=== PATIENT | female | born 1985 | race Caucasian/White ===

== ENCOUNTER → 2020-06-11 11:43 | Outpatient (BNVA) | payer MEDICAID, SELFPAY | PROVIDERS: Family Provider Family Medicine; PCP Family Medicine; Visit Provider Registered Nurse | DX: Z11.59 Encounter for screening for other viral diseases (principal) | CPT/HCPCS: 87635 ==

== ENCOUNTER 2020-06-29 17:58 | Emergency (ER) | payer MEDICAID, SELFPAY ==
[2020-06-29 18:03] VITALS: BP 102/70; PULSE 59; RESP 14; TEMP 36.8; O2SAT 98; BMI 33.5
--- NOTE | 2020-06-29 18:10 | ED_ITS ---
HPI - Chest Pain General: Chief Complaint: Chest Pain Stated Complaint: CHEST PAIN Time Seen by Provider: 06/29/20 18:09 History of Present Illness: HPI narrative: Patient presents today with complaints of right sided epigastric pain and central sternal chest pain. Patient appears well. Patient appears sedated most likely due to fentanyl and Zofran given in route by EMS. Patient reports not feeling well today then started having chest discomfort. Patient reports that pain is improved since there was receiving medication by EMS. Patient reports multiple medical problems also relating to mental health disorders. Radical history includes cholecystectomy, substance abuse, PTSD and depression, intervertebral disc disease. Associated symptoms: Reports abdominal pain Review of Systems General: Reports: 10 or more systems reviewed and unremarkable except in HPI and below GI: Reports: abdominal pain PFSH ED PFSH: Social History (Updated 06/11/20 @ 11:19 by Naomie López LPN) Smoking and tobacco status: current every day smoker Alcohol intake: never Adopted: No Caregiver/support person: No Lives independently: No Household members: children service: No Current occupational status: employed Sexually active: Yes Current gender identity: Female Physical Exam Const: COMMON NORMALS: no acute distress and patient oriented x3 GENERAL APPEARANCE: cooperative HENMT: COMMON NORMALS: normocephalic, TM's normal bilaterally and Normal external nose present HEAD & SCALP: normal to inspection and normocephalic NOSE: Normal external nose present TYMPANIC MEMBRANE: TM's normal bilaterally MOUTH: Normal oral and palatal mucosa present THROAT: posterior oropharynx normal Eye: GENERAL EYE: appearance normal, both eyes and all related structures Neck/C-Spine: COMMON NORMALS: full ROM Lymph: LYMPHATIC: no lymphadenopathy noted Chest: COMMONS NORMALS: normal inspection of the chest Resp: COMMON NORMALS: normal respiratory effort EFFORT & INSPECTION: Yes able to speak in complete sentences Cardio: COMMON NORMALS: regular rate and regular rhythm RATE: regular rate RHYTHM: regular rhythm GI: COMMON NORMALS: Soft to palpation AUSCULTATION: Yes normoactive bowel sounds PALPATION: Yes Soft to palpation and Yes Tenderness to palpation pres ent (GI) (general) : COMMON NORMALS: Yes no CVA tenderness BLADDER/KIDNEY EXAM: Yes no CVA tenderness Back/Pelvis: COMMON NORMALS: no CVA tenderness and thoracic and lumbar spine normal to inspection Extremity: COMMON NORMALS: normal to inspection Neuro: COMMON NORMALS: patient oriented x3 and moves all extremities Psych: COMMON NORMALS: mental status grossly normal and cooperative Skin: COMMON NORMALS: no rashes or lesions noted GENERAL SKIN EXAM: no rashes or lesions noted Course Vital Signs: Vital signs: Vital Signs Temperature 98.2 F 06/29/20 18:03 Pulse Rate 57 L 06/29/20 19:11 Respiratory Rate 15 06/29/20 19:11 Blood Pressure 106/76 06/29/20 19:11 Pulse Oximetry 97 06/29/20 19:11 MDM - Chest Pain MDM Narrative: Medical decision making narrative: Patient comes in for epigastric pain radiating up into her chest. On exam patient is alert oriented. Respirations are even lungs are clear to auscultation. Abdomen soft with some epigastric tenderness. Vital signs are normal. Differential diagnosis includes but not limited to gastritis, pancreatitis, ACS, GERD. Patient had improvement of pain from IV fluids, fentanyl, and Zofran. Laboratory values were unremarkable, except for low potassium at 3.0. Patient had been taking some prednisone recently for gout. Suspect prednisone is probably because some gastritis will put patient on some famotidine for the next 2 weeks to help with the gastritis. Will replace potassium with p.o. potassium. Recommended patient follow-up with primary care for further treatment. Patient reported understanding. Lab Data: Labs: Lab Results 06/29/20 06/29/20 06/29/20 Range/Units 18:43 18:43 18:43 WBC 12.0 H (4.0-10.0) 10^3/ uL RBC 3.93 L (4.1-5.3) 10^6/u L Hgb 12.8 (11.5-15.3) g/dL Hct 37.7 (37.0-47.0) % MCV 95.9 (81-99) fL MCH 32.6 (28.0-34.0) pg MCHC 34.0 (30.0-36.0) g/dL RDW 12.0 L (12.1-15.1) % Plt Count 284 (130-400) 10^3/c mm MPV 11.0 H (7.4-10.4) fL Neut % (Auto) 60.5 % Lymph % (Auto) 32.7 % [place] % (Auto) 4.6 % Eos % (Auto) 1.4 % Baso % (Auto) 0.5 % Neut # (Auto) 7.24 (1.8-7.7) 10^3/u L Lymph # (Auto) 3.9 (0.8-4.8) 10^3/u L [place] # (Auto) 0.6 (0.2-0.9) 10^3/u L Eos # (Auto) 0.2 (0.0-0.8) 10^3/u L Baso # (Auto) 0.1 (0.0-0.1) 10^3/u L Nucleated RBC % (a uto) 0 % Nucleated RBCs # 0.0 /100WBC D-Dimer 0.42 (0-0.59) ug/mIFE U Sodium 138 (136-145) mmol/L Potassium 3.0 L (3.5-5.1) mmol/L Chloride 105 (98-107) mmol/L Carbon Dioxide 20 L (22-29) mmol/L Anion Gap 16.0 (5-19) BUN 11 (6-20) mg/dL Creatinine 0.6 (0.5-0.9) mg/dL GFR Calculation 113.8 (90-130) mL/min Glucose 101 (65-115) mg/dL Calculated Osmolal ity 286 (285-295) mOsm/k g Calcium 9.1 (8.5-10.5) mg/dL Total Bilirubin 0.2 (0.15-1.2) mg/dL AST 16 (0-32) U/L ALT 18 (0-33) U/L Alkaline Phosphata se 105 (35-105) IU/L Troponin T Baselin e (0-10) ng/L Total Protein 6.6 (6.6-8.7) g/dL Albumin 4.0 (3.5-5.2) g/dL Globulin 2.6 (1.3-4.6) g/dL HCG, Qual (Negative) 06/29/20 06/29/20 Range/Units 18:43 18:43 WBC (4.0-10.0) 10^3/ uL RBC (4.1-5.3) 10^6/u L Hgb (11.5-15.3) g/dL Hct (37.0-47.0) % MCV (81-99) fL MCH (28.0-34.0) pg MCHC (30.0-36.0) g/dL RDW (12.1-15.1) % Plt Count (130-400) 10^3/c mm MPV (7.4-10.4) fL Neut % (Auto) % Lymph % (Auto) % [place] % (Auto) % Eos % (Auto) % Baso % (Auto) % Neut # (Auto) (1.8-7.7) 10^3/u L Lymph # (Auto) (0.8-4.8) 10^3/u L [place] # (Auto) (0.2-0.9) 10^3/u L Eos # (Auto) (0.0-0.8) 10^3/u L Baso # (Auto) (0.0-0.1) 10^3/u L Nucleated RBC % (a uto) % Nucleated RBCs # /100WBC D-Dimer (0-0.59) ug/mIFE U Sodium (136-145) mmol/L Potassium (3.5-5.1) mmol/L Chloride (98-107) mmol/L Carbon Dioxide (22-29) mmol/L Anion Gap (5-19) BUN (6-20) mg/dL Creatinine (0.5-0.9) mg/dL GFR Calculation (90-130) mL/min Glucose (65-115) mg/dL Calculated Osmolal ity (285-295) mOsm/k g Calcium (8.5-10.5) mg/dL Total Bilirubin (0.15-1.2) mg/dL AST (0-32) U/L ALT (0-33) U/L Alkaline Phosphata se (35-105) IU/L Troponin T Baselin e 6 (0-10) ng/L Total Protein (6.6-8.7) g/dL Albumin (3.5-5.2) g/dL Globulin (1.3-4.6) g/dL HCG, Qual Negative (Negative) EKG Data^: EKG 1: Attestation: I personally reviewed and interpreted this EKG as follows: (1812, 58 bpm, irregular rate, no ectopy, no ST elevation) Discharge Plan Discharge Patient Disposition: Home Clinical Impression: Atypical chest pain, Hypokalemia Gastritis Qualifiers: Gastritis type: other gastritis Chronicity: acute Gastritis bleeding: without bleeding Qualified Code(s): K29.00 - Acute gastritis without bleeding Condition: Stable Prescriptions: New potassium chloride 10 mEq tablet extended release 10 meq PO DAILY Qty: 7 RF: 0 famotidine 20 mg tablet 20 mg PO BID Qty: 28 RF: 0 Discharge Orders: Discharge Order (Routine); Ordered 06/29/20 Ordered By: Jesse Velazquez Referrals: Dulce Martinez MD [Primary Care Provider] - Discharge Diet: Usual diet Discharge Activity: Increase activity as tolerated Patient Instructions: Hypokalemia (ED) Activity Restrictions/Additional Instructions: Activity as tolerated. Healthy diet and exercise. Follow-up with primary care for further treatment and evaluation. Return to emergency department for new concerns. Coding Level of Care Code ED Equipment Service Engineer for Dago Fwd Exam Comprehensive
[2020-06-29 18:11] VITALS: BP 102/70; PULSE 59; RESP 14; O2SAT 97
--- NOTE | 2020-06-29 18:11 | ECG_ITS ---
[facility] Test Date: 2020-06-29 Pat Name: Lily Arriaga Department: Room: Gender: Female Accounting Intern: : 1985 Requested By: Jesse Hardy Order Number: [id number] Julisa MD: Randi Salgado M.D. Measurements Intervals [place] Rate: 58 P: UT: -1 QRS: 35 QRSD: 91 T: 31 QT: 448 QTc: 442 Interpretive Statements SINUS RHYTHM WITH ECTOPIC ATRIAL BEATS LOW QRS VOLTAGE IN PRECORDIAL LEADS [QRS DEFLECTION < 1.0 mV IN CHEST LEADS] No previous ECG available for comparison Electronically Signed On 06-29-2020 23:28:51 CDT by Randi Salgado M.D. [email or web address]
--- NOTE | 2020-06-29 18:11 | XRR_ITS ---
PROCEDURE INFORMATION: Exam: XR Chest, 1 View Exam date and time: 06/29/2020 6:12 PM Age: 35 years old Clinical indication: Type not specified; Patient HX: PT states mid chest pain began today, PT states she is an ex smoker. PT states surg HX of gb and partial hystorectomy; Additional info: Cp TECHNIQUE: Imaging protocol: XR of the chest Views: 1 view. COMPARISON: [place] Chest 1 [place] [id number] 09/21/2017 10:50 AM FINDINGS: Lungs: Unremarkable. No consolidation. Pleural space: Unremarkable. No pleural effusion. No pneumothorax. Heart/Mediastinum: Unremarkable. No cardiomegaly. Bones/joints: Unremarkable. Other findings: Heavy body habitus. XR/XR chest 1V portable [id number] IMPRESSION: Nonacute.
[2020-06-29 18:41] VITALS: BP 100/68; PULSE 58; RESP 19; O2SAT 99
[2020-06-29 19:09] LABS: Basophils # 0.1 10^3/uL (0.0-0.1); Basophils % 0.5 %; Eosinophils # 0.2 10^3/uL (0.0-0.8); Eosinophils % 1.4 %; Hematocrit 37.7 % (37.0-47.0); Hemoglobin 12.8 g/dL (11.5-15.3); Lymphocytes # 3.9 10^3/uL (0.8-4.8); Lymphocytes % 32.7 %; Mean Corpuscular Hemoglobin 32.6 pg (28.0-34.0); Mean Corpuscular Volume 95.9 fL (81-99); Monocytes # 0.6 10^3/uL (0.2-0.9); Monocytes % 4.6 %; Neutrophils # 7.24 10^3/uL (1.8-7.7); Neutrophils % 60.5 %; Nucleated Red Blood Cells % 0 %; Platelet Count 284 10^3/cmm (130-400); Red Blood Count 3.93 10^6/uL (4.1-5.3)
[2020-06-29 19:11] VITALS: BP 106/76; PULSE 57; RESP 15; O2SAT 97
[2020-06-29 19:21] LABS: HCG, Serum Qual Negative (Negative)
[2020-06-29 19:32] LABS: Alanine Aminotransferase 18 U/L (0-33); Alkaline Phosphatase 105 IU/L (35-105); Aspartate Amino Transferase 16 U/L (0-32); Blood Urea Nitrogen 11 mg/dL (6-20); Calcium 9.1 mg/dL (8.5-10.5); Carbon Dioxide 20 mmol/L (22-29); Chloride 105 mmol/L (98-107); Globulin 2.6 g/dL (1.3-4.6); Glomerular Filtration Rate 113.8 mL/min (90-130); Glucose 101 mg/dL (65-115); Osmolality Calculated 286 mOsm/kg (285-295); Sodium 138 mmol/L (136-145); Total Bilirubin 0.2 mg/dL (0.15-1.2); Total Protein 6.6 g/dL (6.6-8.7)
[2020-06-29 19:33] LABS: Troponin(5th) Baseline 6 ng/L (0-10)
[2020-06-29 19:34] LABS: D Dimer 0.42 ug/mIFEU (0-0.59)
[2020-06-29 19:59] VITALS: BP 129/75; PULSE 95; O2SAT 96
[2020-06-29] MEDS: potassium chloride ER 10 mEq Tablet 20 MEQ PO (20:09)
[2020-06-29] MEDS: famotidine 20 mg/2 mL INJ 40 MG IVP (20:09)
[2020-06-29 20:18] VITALS: RESP 18
== END 2020-06-29 20:18 | disposition home or self-care (01) ==
PROVIDERS: Emergency Provider Nurse Practitioner Family; Family Provider Family Medicine; PCP Family Medicine
DX: R07.89 Other chest pain (principal); K29.00 Acute gastritis without bleeding; E87.6 Hypokalemia; F17.210 Nicotine dependence, cigarettes, uncomplicated
CPT/HCPCS: 12345; 36415; 71045; 80053; 84484; 84703; 85025; 85378; 93005; 96374; 96375; 99283; 99284; J3490

== ENCOUNTER 2021-07-12 10:13 | Outpatient (CLI) | payer BC, MEDICAID, SELFPAY ==
--- NOTE | 2021-07-12 11:00 | MR_ITS ---
WS: [id number] MRI BRAIN WITH HIGH-RESOLUTION IMAGING THROUGH THE INTERNAL AUDITORY CANALS WITHOUT AND WITH CONTRAST HISTORY: [id number] HEAR LOSS, UNI, R EAR, pressure and hearing loss. COMPARISON: CT head 09/21/2017 TECHNIQUE: Multiplanar, multisequence imaging is performed through the brain. Additional 3 mm imaging performed in multiple planes through the internal auditory canal. Postcontrast imaging with 17 ml's of MultiHance. No acute intracranial hemorrhage, midline shift, edema or mass effect. No volume loss or atrophy. No inferior displacement of cerebellar tonsils. Ventricles and extra-axial spaces are normal. No inferior displacement of cerebellar tonsils. Clivus and pituitary gland are normal. Internal and external auditory canals: Unremarkable. Cranial nerves VII and VIII complexes: The RIGHT 7th and 8th cranial nerve complex is not as well see n LEFT but there is no mass effect or abnormal enhancement. The orientation is slightly more vertical than horizontal of the RIGHT 7th and 8th cranial nerve complexes. Also RIGHT 7th and 8th cranial ner ves are slightly larger than the LEFT. Cerebellopontine angles: Normal. Paranasal sinuses: Normal. Mastoid air cells: Normal. Calvarium and scalp: Normal. Visualized chilkat of [place] and dural venous sinuses demonstrate no abnormality. MR/MR iac's wo/w con* [id number] IMPRESSION: 1. The RIGHT 7th and 8th cranial nerve complex is slightly larger than the LEF T but there is no mass or abnormal enhancement. This is probably normal variati on. 2. No infarct or mass or prior hemorrhage.
== END 2021-07-12 10:14 | disposition home or self-care (01) ==
PROVIDERS: PCP Family Medicine; Visit Provider Otolaryngology
DX: H90.41 Sensorineural hearing loss, unilateral, right ear, with unrestricted hearing on the contralateral side (principal); H92.01 Otalgia, right ear
CPT/HCPCS: 70553; A9577

== ENCOUNTER → 2021-09-26 13:29 | Outpatient (BNVA) | payer BC, MEDICAID, SELFPAY | PROVIDERS: PCP Family Medicine; Visit Provider Registered Nurse | DX: Z20.822 Contact with and (suspected) exposure to COVID-19 (principal); Z11.52 Encounter for screening for COVID-19 | CPT/HCPCS: 87635 ==

== ENCOUNTER → 2021-10-30 13:38 | Outpatient (BNVA) | payer BC, MEDICAID, SELFPAY | PROVIDERS: PCP Family Medicine; Referring Provider Specialist; Visit Provider Specialist | DX: G43.711 Chronic migraine without aura, intractable, with status migrainosus (principal); G40.309 Generalized idiopathic epilepsy and epileptic syndromes, not intractable, without status epilepticus; Z86.73 Personal history of transient ischemic attack (TIA), and cerebral infarction without residual deficits; Z82.49 Family history of ischemic heart disease and other diseases of the circulatory system | CPT/HCPCS: 99205 ==

== ENCOUNTER → 2021-12-16 07:48 | Outpatient (BNVA) | payer BC, MEDICAID, SELFPAY | PROVIDERS: PCP Family Medicine; Referring Provider Family Medicine; Visit Provider Specialist | DX: G40.309 Generalized idiopathic epilepsy and epileptic syndromes, not intractable, without status epilepticus (principal) | CPT/HCPCS: 99214 ==

== ENCOUNTER → 2022-01-21 14:44 | Outpatient (BNVA) | payer BC, MEDICAID, SELFPAY | PROVIDERS: PCP Family Medicine; Referring Provider Nurse Practitioner Family; Visit Provider Podiatrist Foot & Ankle Surgery | DX: S92.251A Displaced fracture of navicular [scaphoid] of right foot, initial encounter for closed fracture (principal); W10.9XXA Fall (on) (from) unspecified stairs and steps, initial encounter | CPT/HCPCS: 73630; 99204 ==

== ENCOUNTER 2022-01-21 15:58 | Outpatient (CLI) | payer BC, MEDICAID, SELFPAY | END 2022-01-21 15:59 | disposition home or self-care (01) | LOC: SPT 15:59 | PROVIDERS: PCP Family Medicine; Visit Provider Podiatrist Foot & Ankle Surgery | DX: Z46.89 Encounter for fitting and adjustment of other specified devices (principal); S92.251D Displaced fracture of navicular [scaphoid] of right foot, subsequent encounter for fracture with routine healing; X58.XXXD Exposure to other specified factors, subsequent encounter | CPT/HCPCS: 97760; L1902 ==

== ENCOUNTER → 2022-03-04 13:16 | Outpatient (BNVA) | payer BC, MEDICAID, SELFPAY | PROVIDERS: PCP Family Medicine; Visit Provider Podiatrist Foot & Ankle Surgery | DX: S92.251D Displaced fracture of navicular [scaphoid] of right foot, subsequent encounter for fracture with routine healing (principal); W10.9XXD Fall (on) (from) unspecified stairs and steps, subsequent encounter | CPT/HCPCS: 99213 ==

== ENCOUNTER 2022-03-13 14:46 | Outpatient (CLI) | payer BC, MEDICAID, SELFPAY ==
--- NOTE | 2022-03-13 14:54 | MR_ITS ---
WS: [id number] MRI HEAD WITHOUT CONTRAST TECHNIQUE: Sagittal T1, T2 axial, T2 axial FLAIR, axial and coronal T1 images, axial susceptibility w eighted imaging, axial diffusion weighted images, and coronal T2 images were obtained. CLINICAL INFORMATION: G43.711 - Chronic migraine without aura, intractable, wit... COMPARISON: MRI July 12, 2021 FINDINGS: No evidence of restricted diffusion to suggest acute ischemia. Ventricular system and basal cisterns are patent. Normal stovall-white differentiation. No suspicious intracranial signal abnormalities. 2 or 3 tiny punctate foci of T2 hyperintensity in the frontal subcortical white matter can be seen with mi graine headaches. Otherwise of doubtful clinical significance. Normal posterior fossa. Normal vascular flow voids at the skull base. No extra-axial fluid collection s. No evidence of mass or mass effect. Mucosal thickening in the RIGHT frontal sinus with partial opa cification and frontal ethmoidal recess. Normal posterior nasopharynx. Normal parapharyngeal fat. Mastoid air cells are well aerated. Normal visualized orbits. Normal optic chiasm and pituitary infun dibulum. Temporal lobes and hippocampal formations are normal in appearance. No hemosiderin on the culp sceptibly weighted images. MR/MR head wo con* [id number] IMPRESSION: 1. No evidence of restricted diffusion to suggest acute ischemia. 2. No suspicious intracranial signal abnormalities. Normal stovall-white differen tiation. 3. 2 or 3 tiny punctate foci of T2 hyperintensity in the frontal subcortical w pranav matter can be seen with migraine headaches. 4. No significant parenchymal volume loss. Temporal lobes and hippocampal form ations are normal in appearance. 5. Opacification of the RIGHT frontal sinus and frontal ethmoidal recess. Aubrey mmend correlation for RIGHT frontal sinus pain. 6. No hemosiderin on susceptibly weighted images. 7. No other significant changes compared to previous.
== END 2022-03-13 14:47 | disposition home or self-care (01) ==
PROVIDERS: PCP Family Medicine; Visit Provider Specialist
DX: G43.711 Chronic migraine without aura, intractable, with status migrainosus (principal); G40.309 Generalized idiopathic epilepsy and epileptic syndromes, not intractable, without status epilepticus; G45.9 Transient cerebral ischemic attack, unspecified
CPT/HCPCS: 70551

== ENCOUNTER 2022-04-15 10:57 | Outpatient (CLI) | payer BC, MEDICAID, SELFPAY ==
--- NOTE | 2022-04-15 11:05 | MR_ITS ---
WS: [id number] MRI BRAIN WITH HIGH-RESOLUTION IMAGING THROUGH THE INTERNAL AUDITORY CANALS WITHOUT AND WITH CONTRAST HISTORY: OTALGIA,R EAR COMPARISON: 07/12/2021 and 03/13/2022 TECHNIQUE: Multiplanar, multisequence imaging is performed through the brain. Additional 3 mm imaging performed in multiple planes through the internal auditory canal. Postcontrast imaging with 15 ml's of MultiHance. No acute intracranial hemorrhage, midline shift, edema or mass effect. No prior infarct or microvascular ischemic disease. Subcortical bilateral frontal lobe disease. Reide ntified. Most typical for migraines. No progression of white matter disease. Ventricles and extra-axial spaces are normal. No inferior displacement of cerebellar tonsils. Clivus and pituitary gland are normal. Internal and external auditory canals: Unremarkable. Cranial nerves VII and VIII complexes: Unremarkable. No enhancement or mass. Cerebellopontine angles: Normal. Paranasal sinuses: Mild mucoperiosteal thickening involving the RIGHT frontal and frontal ethmoid rec ess. Improved aeration since the prior study. No air-fluid levels within the sinuses. Mastoid air cells: Normal. Calvarium and scalp: Normal. Visualized sle[place] of [place] and dural venous sinuses demonstrate no abnormality. MR/MR iac's wo/w con* [id number] IMPRESSION: 1. Normal internal auditory canals. No signal abnormality or abnormal enhancem ent. 2. Mild improvement of the RIGHT frontal and frontal ethmoid sinus disease. 3. Minimal subcortical white matter disease in the frontal lobes is stable. Ty pical distribution for migraines.
[2022-04-15] MEDS: gadobenate dimeglumine 20 mL vial IV (12:22)
== END 2022-04-15 10:58 | disposition home or self-care (01) ==
LOC: RAD 10:58
PROVIDERS: PCP Nurse Practitioner Family; Visit Provider Otolaryngology
DX: R56.9 Unspecified convulsions (principal); G43.711 Chronic migraine without aura, intractable, with status migrainosus; F33.9 Major depressive disorder, recurrent, unspecified; H92.01 Otalgia, right ear
CPT/HCPCS: 70553; 99214

== ENCOUNTER 2022-04-29 10:44 | Outpatient (CLI) | payer BC, MEDICAID, SELFPAY ==
--- NOTE | 2022-04-29 10:53 | CT_ITS ---
WS: [id number] Exam: CT neck w con* [id number] Date/Time of Exam: 04/29/2022 11:08 AM Reason For Exam: OTALGIA, R EAR/ARTHRALGIA OF R TEMPOROMANDIBULAR JOINT DLP: 216.[address] scans at [facility] use at least one of these dose optimization techniques: automated e xposure control; mA and/or kV adjustment per patient size (includes targeted exams where dose is matc hed to clinical indication); or iterative reconstruction. Comparison 07/05/2019. No sign of neck mass or significant cervical lymphadenopathy. The airway is patent. No lesions are no cecilia in the region of the tongue base. The parotid glands and submandibular glands are symmetrical herrera e to side. Vascular structures of the neck are unremarkable. Unremarkable thyroid tissue. Groundglass densities identified in the visualized upper lung zones. Degenerative changes of the cervical spine. Stable appearing small lytic lesion in the C5 vertebral body. Unremarkable skull base. Marked rightw kal nasal septal deviation. CT/CT neck w con* [id number] IMPRESSION: 1. No sign of neck mass or significant cervical lymphadenopathy. 2. Additional minor findings as detailed above.
[2022-04-29] MEDS: iohexol 350 mg/mL 100 mL Btl IV (11:32)
== END 2022-04-29 10:45 | disposition home or self-care (01) ==
LOC: RAD 10:44
PROVIDERS: PCP Nurse Practitioner Family; Visit Provider Specialist
DX: H90.41 Sensorineural hearing loss, unilateral, right ear, with unrestricted hearing on the contralateral side (principal); H92.01 Otalgia, right ear; M26.621 Arthralgia of right temporomandibular joint
CPT/HCPCS: 70491

== ENCOUNTER → 2022-05-01 10:03 | Outpatient (BNVA) | payer BC, MEDICAID, SELFPAY | PROVIDERS: PCP Nurse Practitioner Family; Referring Provider Specialist; Visit Provider Specialist | DX: G40.309 Generalized idiopathic epilepsy and epileptic syndromes, not intractable, without status epilepticus (principal) | CPT/HCPCS: 95812; 95816 ==

== ENCOUNTER 2022-05-13 11:05 | Emergency (ER) | payer BC, MEDICAID, SELFPAY ==
--- NOTE | 2022-05-13 11:13 | W.ED.GENADLT ---
HPI - General Adult General: Chief complaint: Seizure Stated complaint: seizure Time Seen by Provider: 05/13/22 11:06 History of Present Illness: Patient is a 37-year-old female with a history of seizures currently on valproic acid presenting to the emergency room after she forgot to take her medicine today with concerns of seizure outbreak. Patient most recently on 04/29/2022 was diagnosed with C5 lytic lesion and is currently undergoing evaluation for that lesion. Patient was also diagnosed with osteoarthritis of the bone was recently started on Flexeril 10 mg. Patient has been taking her Flexeril for back pain. Earlier today, patient got to take her to valproic acid and had a witnessed episode of breakthrough seizure. Patient was postictal when EMS arrived. On arrival to the emergency room, patient is AAO x3, patient complains of neck pain, left shoulder pain. Patient reports brief episodes of dyspnea prior to the episode of seizure. Patient has no complaints of persistent dyspnea chest pain, cough, runny nose or sore throat. Patient also complains of right-sided ear pain. Patient denies any focal weakness in the arms or legs, fever/chills, cough, runny nose, sore throat, chest pain, abdominal component nausea/vomiting, diarrhea melena hematochezia. No complaints. Onset: 9am Duration:once Location:work Severity:moderate Associated symptoms: Reports headache(s); Deny chest pain, dyspnea, nausea, rash, palpitations or vomiting Review of Systems Const: Denies: fever(s) or chills Eyes: Denies: change in vision ENMT: Reports: other (+R ear pain); Denies: mouth pain Card: Denies: chest pain or palpitations Resp: Denies: dyspnea or non-productive cough GI: Denies: abdominal pain, nausea, vomiting or diarrhea : Denies: dysuria Musc: Reports: neck pain and extremity pain (+L shoulder pain) Skin/Breast: Denies: rash or new lesions Neuro: Reports: headache(s); Denies: weakness in extremities Psych: Reports: other (Normal mood) Trip/Lymph: Denies: easy bruising PFS ED PFSH: Medical History Migraine Seizure Social History Smoking and tobacco status: never smoked Alcohol intake: never Adopted: No Caregiver/support person: No Lives independently: No Household members: children service: No Current occupational status: employed Sexually active: Yes Current gender identity: Female Physical Exam Const: COMMON NORMALS: alert HENMT: COMMON NORMALS: atraumatic HEAD & SCALP: atraumatic MOUTH: moist mucous membranes not abnormal Eye: COMMON NORMALS: EOMs intact bilaterally and conjunctivae normal CONJUNCTIVA: Yes conjunctivae normal Neck/C-Spine: COMMON NORMALS: full ROM and supple OTHER: +mild midline C4 tenderness to palpation Resp: COMMON NORMALS: normal respiratory effort and clear to auscultation bilaterally AUSCULTATION: clear to auscultation bilaterally Cardio: COMMON NORMALS: regular rate RATE: regular rate GI: COMMON NORMALS: Soft to palpation and non-tender PALPATION: Yes Soft to palpation Extremity: COMMON NORMALS: full ROM NARRATIVE EXTREMITY EXAM: +ROM of the L shoulder intact +Pain with ROM of the l shoulder Neurovascular exam intact in the distal extremities Neuro: SENSORIUM/ORIENTATION: Yes alert MOTOR EXAM: No Abnormal motor strength present and Other motor observations present (no focal motor deficits) OTHER: Mental status? Awake, alert, and oriented to self, year, month, location, and situation.? Following simple axial and appendicular commands.? Has appropriate fund of knowledge, comprehension, and insight.? Able to recall and understands pertinent aspects of medical history and current treatment status.? ? Language? Speech is fluent without word-finding difficulties.? Intact naming, expression, receptionist, and repetition.? ? Cranial nerves? 2,3,4,6: PERRL, EOMI with no nystagmus. 5: Intact sensation to light touch, symmetric? 7: Smile symmetrical, no facial droop.? 8: Hearing grossly intact.? 9,10: Normal palate movement.? 11: Normal strength in trapezius bilaterally 12: Tongue protrudes midline.? ? Motor examination? Normal bulk & tone. Strength as follows (R/L): Delts (5/5), Biceps (5/5), Triceps (5/5), Wrist ext (5/5), hip flexors (5/5), plantarflexors (5/5), dorsiflexors (5/5). ? Sensation? Light Touch: Grossly intact and equal in upper and lower extremities bilaterally? Romberg: Negative.? Distal joint position sense intact ? Coordination? Uvsxbd-xr-tdti-finger movements intact without dysmetria or past-pointing.? Rapid fingertaps: preserved amplitude without decriment.? No tremor, myoclonus or truncal ataxia.? ? Gait/stance? Steady, normal narrow base gait with appropriate arm swing and turning.? Tandem gait without hesitation or loss of balance. Psych: COMMON NORMALS: speech normal SPEECH: Yes normal speech MOOD & AFFECT: Yes euthymic mood Course Vital Signs: Vital signs: Vital Signs Temperature 98.3 F 05/13/22 11:14 Pulse Rate 78 05/13/22 11:14 Respiratory Rate 18 05/13/22 11:14 Blood Pressure 102/69 05/13/22 11:14 Pulse Oximetry 97 05/13/22 11:14 Oxygen Delivery Me thod 05/13/22 11:14 MDM - General Adult Medical Decision Making 37-year-old female with history of seizure on valproic acid presenting to the emergency room with breakthrough episode of seizure while at work today. On exam, patient is hemodynamically stable. Patient has mild C5 midline tenderness to palpation. There is mild left shoulder pain to range of motion. Rest of exam is unremarkable. Neuro exam is intact. Patient is AAOx3. Given presentation today, I suspect the patient's breakthrough seizure is likely due to medication noncompliance in the setting of decreased seizure threshold from Flexeril. Instructed patient to stop taking Flexeril at home. We will send valproic acid level today. Workup showed no focal finding. Patient valproic acid is below therapeutic level. I discussed case with Dr. Escobar who thinks that patient may be on valproic acid for chronic migraine. Dr. Escobar recommend starting patient on Keppra [address] imaging studies were negative for any acute findings. S/p Kcl 40mEq in the Ed. I have given patient follow up with our case fitter to be seen by our outpatient by Dr. Escobar. Patient aware of a call from our case fitter to schedule for appointment(s) and verbalizes understanding of the importance of following up. Rx keppra 500mg BID for seizures Disposition: Discharge. Patient counseled regarding diagnostic impression, treatment plan. Patient given ED strict return precautions to return for continuation, worsening, or development of new symptoms. Instructed to f/u w/ Dr. Escobar regarding symptoms today. Patient verbalized understanding. Lab Data : 05/13/22 11:10 05/13/22 11:10 Radiology Impressions Cervical Spine CT 05/13/22 11:18 IMPRESSION: 1. No acute cervical spine fracture. 2. Degenerative changes and osteophytosis as described above. Most significant changes at C4-5 and C5-6. Chest X-Ray 05/13/22 11:18 IMPRESSION: Unremarkable chest radiograph. Head CT 05/13/22 11:18 IMPRESSION: Negative head CT. Shoulder X-Ray 05/13/22 11:18 IMPRESSION: Negative left shoulder. Laboratory Results WBC 9.5 10^3/uL (4.0-10.0) 05/13/22 11:10 RBC 4.66 10^6/uL (4.1-5.3) 05/13/22 11:10 Hgb 15.1 g/dL (11.5-15.3) 05/13/22 11:10 Hct 44.3 % (37.0-47.0) 05/13/22 11:10 MCV 95.1 fl (81-99) 05/13/22 11:10 MCH 32.4 pg (28.0-34.0) 05/13/22 11:10 MCHC 34.1 g/dL (30.0-36.0) 05/13/22 11:10 RDW 11.8 % (12.1-15.1) L 05/13/22 11:10 Plt Count 257 10^3/cmm (130-400) 05/13/22 11:10 MPV 11.2 fL (7.4-10.4) H 05/13/22 11:10 Neut % (Auto) 57.6 % 05/13/22 11:10 Lymph % (Auto) 35.8 % 05/13/22 11:10 [place] % (Auto) 4.8 % 05/13/22 11:10 Eos % (Auto) 0.7 % 05/13/22 11:10 Baso % (Auto) 0.6 % 05/13/22 11:10 Neut # (Auto) 5.45 10^3/uL (1.8-7.7) 05/13/22 11:10 Lymph # (Auto) 3.4 10^3/uL (0.8-4.8) 05/13/22 11:10 [place] # (Auto) 0.5 10^3/uL (0.2-0.9) 05/13/22 11:10 Eos # (Auto) 0.1 10^3/uL (0.0-0.8) 05/13/22 11:10 Baso # (Auto) 0.1 10^3/uL (0.0-0.1) 05/13/22 11:10 Nucleated RBC % (auto) 0 % 05/13/22 11:10 Nucleated RBCs # 0.0 /100WBC 05/13/22 11:10 Sodium 138 mmol/L (136-145) 05/13/22 11:10 Potassium 3.1 mmol/L (3.5-5.1) L 05/13/22 11:10 Chloride 101 mmol/L (98-107) 05/13/22 11:10 Carbon Dioxide 23 mmol/L (22-29) 05/13/22 11:10 Anion Gap 17.1 (5-19) 05/13/22 11:10 BUN 15 mg/dL (6-20) 05/13/22 11:10 Creatinine 0.8 mg/dL (0.5-0.9) 05/13/22 11:10 GFR Calculation 80.7 mL/min (90-130) L 05/13/22 11:10 Glucose 73 mg/dL (65-115) 05/13/22 11:10 Calculated Osmolality 285 mOsm/kg (285-295) 05/13/22 11:10 Calcium 9.9 mg/dL (8.5-10.5) 05/13/22 11:10 Magnesium 2.1 mg/dL (1.7-2.3) 05/13/22 11:10 Total Bilirubin 0.3 mg/dL (0.15-1.2) 05/13/22 11:10 AST 13 U/L (0-32) 05/13/22 11:10 ALT 13 U/L (0-33) 05/13/22 11:10 Alkaline Phosphatase 81 U/L (35-105) 05/13/22 11:10 Total Protein 7.6 g/dL (6.6-8.7) 05/13/22 11:10 Albumin 4.6 g/dL (3.5-5.2) 05/13/22 11:10 Globulin 3.0 g/dL (1.3-4.6) 05/13/22 11:10 Lipase 52 U/L (13-60) 05/13/22 11:10 Urine Color Yellow (Yellow) 05/13/22 12:53 Urine Appearance Clear (CLEAR) 05/13/22 12:53 Urine pH 5 (5-7) 05/13/22 12:53 Ur Specific [place] 1.005 (1.005-1.030) 05/13/22 12:53 Urine Protein Neg (Negative) 05/13/22 12:53 Urine Glucose (UA) Norm (Normal) 05/13/22 12:53 Urine Ketones Negative (Negative) 05/13/22 12:53 Urine Blood Neg (Negative) 05/13/22 12:53 Urine Nitrate Negative (Negative) 05/13/22 12:53 Urine Bilirubin Neg (Negative) 05/13/22 12:53 Urine Urobilinogen Norm mg/dL (Negative) 05/13/22 12:53 Ur Leukocyte Esterase Negative (Negative) 05/13/22 12:53 Valproic Acid 2.8 ug/mL (50-100) L 05/13/22 11:10 Imaging Data Other Imaging: Radiologist's impression: [address] [address] XRay Report Signed Patient: Lily Arriaga Unit #: [id number] : 1985 Age/Sex: 37 / F ADM Date: 05/13/22 Loc: ER Room/Bed: Attending Dr: Ordering Provider/Ordering MD: Swati Mjeia MD Date of Service: 05/13/22 Procedure(s): XR shoulder LT min 2V* [id number] Accession Number(s): [id number] Report Number: [id number] WS: [email or web address] Exam: XR shoulder LT min 2V* [id number] Date/Time of Exam: 05/13/2022 11:29 AM Reason For Exam: shoulder pain The projections of the shoulder reveal no fractures, anomalies, soft tissue swelling, or calcifications.? There is normal bony alignment.? No irregularity of the bony architecture is noted. ? XR/XR shoulder LT min 2V* [id number] IMPRESSION: Negative left shoulder. ? ? Dictated By: Vik Petit DO Signed By: Vik Petit DO Signed Date/Time: 05/13/22 1144 DD/ [address] [place] [address] CT Scan Report Signed Patient: Lily Arriaga Unit #: [id number] : 1985 Age/Sex: 37 / F ADM Date: 05/13/22 Loc: ER Room/Bed: Attending Dr: Ordering Provider/Ordering MD: Swati Mejia MD Date of Service: 05/13/22 Procedure(s): CT head wo con* [id number] Accession Number(s): [id number] Report Number: [id number] WS: [email or web address] CT HEAD NONCONTRAST HISTORY: fall TECHNIQUE: Contiguous axial imaging performed through the brain in 2.5 mm imaging. Bone and soft tissue windows. Sagittal and coronal reformats reviewed.? All CT scans at [facility] use at least one of these dose optimization techniques: automated exposure control; mA and/or kV adjustment per patient size (includes targeted exams where dose is matched to clinical indication); or iterative reconstruction. DLP: 1095.28 mGy.cm COMPARISON: 09/21/2017 No acute intracranial hemorrhage, midline shift or mass effect. No atrophy or prior infarcts or herniation. Ventricles:? Normal size with no hydrocephalus. Paranasal sinuses: As visualized are clear. Mastoid air cells: Well pneumatized. Calvarium and scalp: Skull is intact with no soft tissue edema or swelling. CT/CT head wo con* [id number] IMPRESSION: ? Negative head CT. ? Dictated By: Meeta Loja DO Signed By: Meeta Loja DO Signed Date/Time: 05/13/22 1207 DD/ [address] [address] XRay Report Signed Patient: Lily Arriaga Unit #: [id number] : 1985 Age/Sex: 37 / F ADM Date: 05/13/22 Loc: ER Room/Bed: Attending Dr: Ordering Provider/Ordering MD: Swati Mejia MD Date of Service: 05/13/22 Procedure(s): XR chest 1V portable [id number] Accession Number(s): [id number] Report Number: [id number] WS: [email or web address] Exam: XR chest 1V portable [id number] Date/Time of Exam: 05/13/2022 11:29 AM Reason For Exam: dyspnea Comparison 06/29/2020. Findings: The lungs are clear and fully expanded. Costophrenic angles are sharp. No infiltrates. Bronchovascular relief appears normal. Cardiac silhouette is unremarkable. Bony elements are intact. ? XR/XR chest 1V portable [id number] IMPRESSION: Unremarkable chest radiograph. ? ? Dictated By: Vik Petit DO Signed By: Vik Petit DO Signed Date/Time: 05/13/22 1142 DD/ [address] [place] [address] CT Scan Report Signed Patient: Lily Arriaga Unit #: [id number] : 1985 Age/Sex: 37 / F ADM Date: 05/13/22 Loc: ER Room/Bed: Attending Dr: Ordering Provider/Ordering MD: Swati Mejia MD Date of Service: 05/13/22 Procedure(s): CT cervical spin wo con* [id number] Accession Number(s): [id number] Report Number: [id number] WS: [email or web address] CT CERVICAL SPINE HISTORY: fall, neck pain TECHNIQUE: Contiguous 2.5 mm axial imaging performed through the entire cervical spine. Sagittal and coronal reformats also performed.? All CT scans at [facility] use at least one of these dose optimization techniques: automated exposure control; mA and/or kV adjustment per patient size (includes targeted exams where dose is matched to clinical indication); or iterative reconstruction. DLP: 175.67 mGy.cm COMPARISON: 07/03/2019 Mild straightening of the normal cervical lordosis. Spondylitic osteophytes from the vertebral bodies. No fracture. Craniocervical junction is normally aligned. C2-C3: Normal. C3-C4: Osteophytic ridging asymmetric to the LEFT. No stenosis. C4-C5: Asymmetric disc bulging and osteophytic ridging with facet arthritis. Mild encroachment upon the ventral thecal sac by disc and osteophyte. C5-C6: Osteophytic ridging encroaching upon the ventral thecal sac. Mild central and bilateral foraminal stenosis. C6-C7: Mild foraminal osteophytosis. C7-T1: No significant stenosis. Bilateral cervical chain lymph nodes are subcentimeter. CT/CT cervical spin wo con* [id number] IMPRESSION: ? 1.? No acute cervical spine fracture. 2.? Degenerative changes and osteophytosis as described above. Most significant changes at C4-5 and C5-6. ? Dictated By: Meeta Loja DO Signed By: Meeta Loja DO Signed Date/Time: 05/13/22 1215 DD/ 1208 Discharge Plan Discharge Patient Disposition: Home Clinical Impression: Seizure Condition: Stable Prescriptions: New Keppra 500 mg tablet 500 mg PO BID 14 Days Qty: 28 0RF acetaminophen 500 mg tablet 500 mg PO Q6H PRN (Reason: pain) 5 Days Qty: 20 0RF lidocaine 5 % adhesive patch,medicated 1 patch topical DAILY PRN (Reason: pain) 30 Days Qty: 30 0RF Rx Instructions: leave on most painful area for up to 12 hrs Biofreeze (menthol) 5 % gel 1 ea topical BID PRN (Reason: pain) 10 Days Qty: 1 0RF No Action divalproex [Depakote ER] 500 mg tablet extended release 24 hr 500 mg PO DAILY 90 Days Qty: 90 3RF magnesium oxide 500 mg tablet 500 mg PO TID Qty: 90 3RF Rx Instructions: Take 1 tab 3 times a day. Discharge Orders: Discharge ED (Routine); Ordered 05/13/22 Ordered By: Swati Mejia Referrals: Vicki Quintero [Primary Care Provider] - Discharge Diet: Advance as tolerated Discharge Activity: Increase activity as tolerated Patient Instructions: Epilepsy (ED) Activity Restrictions/Additional Instructions: Please come back to the emergency room for any more breakthrough episodes of seizure. Come back if any weakness in her arms, drooling, difficulty speaking, any neurological symptoms. Please do not swim bathe or drive a vehicle unattended. Our case fitter will have you follow-up with Dr. Majano in the next few days. You would be expected to have a phone call with our case fitter who will put you on the schedule. You can expect a call from us in the next 2-3 days. If you don't hear from us, call us back in the emergency room at [phone]. Coding Level of Care Code ED Hearing Healthcare Practitioner for [employer]uro[employer] Fwd Exam Comprehensive
[2022-05-13 11:14] VITALS: BP 102/69; PULSE 78; RESP 18; TEMP 36.8; O2SAT 97; BMI 27.4
--- NOTE | 2022-05-13 11:18 | XR_ITS ---
WS: [email or web address] Exam: XR shoulder LT min 2V* [id number] Date/Time of Exam: 05/13/2022 11:29 AM Reason For Exam: shoulder pain The projections of the shoulder reveal no fractures, anomalies, soft tissue swelling, or calcificatio ns. There is normal bony alignment. No irregularity of the bony architecture is noted. XR/XR shoulder LT min 2V* [id number] IMPRESSION: Negative left shoulder.
--- NOTE | 2022-05-13 11:18 | CT_ITS ---
WS: [email or web address] CT CERVICAL SPINE HISTORY: fall, neck pain TECHNIQUE: Contiguous 2.5 mm axial imaging performed through the entire cervical spine. Sagittal and coronal reformats also performed. All CT scans at [facility] use at least one of these dose o ptimization techniques: automated exposure control; mA and/or kV adjustment per patient size (include s targeted exams where dose is matched to clinical indication); or iterative reconstruction. DLP: 175.67 mGy.cm COMPARISON: 07/03/2019 Mild straightening of the normal cervical lordosis. Spondylitic osteophytes from the vertebral bodies . No fracture. Craniocervical junction is normally aligned. C2-C3: Normal. C3-C4: Osteophytic ridging asymmetric to the LEFT. No stenosis. C4-C5: Asymmetric disc bulging and osteophytic ridging with facet arthritis. Mild encroachment upon t he ventral thecal sac by disc and osteophyte. C5-C6: Osteophytic ridging encroaching upon the ventral thecal sac. Mild central and bilateral forami nal stenosis. C6-C7: Mild foraminal osteophytosis. C7-T1: No significant stenosis. Bilateral cervical chain lymph nodes are subcentimeter. CT/CT cervical spin wo con* [id number] IMPRESSION: 1. No acute cervical spine fracture. 2. Degenerative changes and osteophytosis as described above. Most significant changes at C4-5 and C5-6.
--- NOTE | 2022-05-13 11:18 | XR_ITS ---
WS: [email or web address] Exam: XR chest 1V portable [id number] Date/Time of Exam: 05/13/2022 11:29 AM Reason For Exam: dyspnea Comparison 06/29/2020. Findings: The lungs are clear and fully expanded. Costophrenic angles are sharp. No infiltrates. Bronchovascula r relief appears normal. Cardiac silhouette is unremarkable. Bony elements are intact. XR/XR chest 1V portable [id number] IMPRESSION: Unremarkable chest radiograph.
--- NOTE | 2022-05-13 11:18 | CT_ITS ---
WS: [email or web address] CT HEAD NONCONTRAST HISTORY: fall TECHNIQUE: Contiguous axial imaging performed through the brain in 2.5 mm imaging. Bone and soft tiss ue windows. Sagittal and coronal reformats reviewed. All CT scans at [facility] use at least one of these dose optimization techniques: automated exposure control; mA and/or kV adjustment per pa tient size (includes targeted exams where dose is matched to clinical indication); or iterative recon struction. DLP: 1095.28 mGy.cm COMPARISON: 09/21/2017 No acute intracranial hemorrhage, midline shift or mass effect. No atrophy or prior infarcts or herniation. Ventricles: Normal size with no hydrocephalus. Paranasal sinuses: As visualized are clear. Mastoid air cells: Well pneumatized. Calvarium and scalp: Skull is intact with no soft tissue edema or swelling. CT/CT head wo con* [id number] IMPRESSION: Negative head CT.
[2022-05-13 11:19] LABS: Basophils # 0.1 10^3/uL (0.0-0.1); Basophils % 0.6 %; Eosinophils # 0.1 10^3/uL (0.0-0.8); Eosinophils % 0.7 %; Hematocrit 44.3 % (37.0-47.0); Hemoglobin 15.1 g/dL (11.5-15.3); Lymphocytes # 3.4 10^3/uL (0.8-4.8); Lymphocytes % 35.8 %; Mean Corpuscular HGB Conc 34.1 g/dL (30.0-36.0); Mean Corpuscular Hemoglobin 32.4 pg (28.0-34.0); Mean Corpuscular Volume 95.1 fl (81-99); Mean Platelet Volume 11.2 fL (7.4-10.4); Monocytes # 0.5 10^3/uL (0.2-0.9); Monocytes % 4.8 %; Neutrophils # 5.45 10^3/uL (1.8-7.7); Neutrophils % 57.6 %; Nucleated Red Blood Cells % 0 %; Platelet Count 257 10^3/cmm (130-400); Red Blood Count 4.66 10^6/uL (4.1-5.3); Red Cell Distribution Width 11.8 % (12.1-15.1); White Blood Count 9.5 10^3/uL (4.0-10.0)
[2022-05-13] MEDS: sodium chloride 0.9% 1,000 ML 999 ML IV (11:22)
[2022-05-13 11:43] LABS: Alanine Aminotransferase 13 U/L (0-33); Albumin Level 4.6 g/dL (3.5-5.2); Alkaline Phosphatase 81 U/L (35-105); Aspartate Amino Transferase 13 U/L (0-32); Blood Urea Nitrogen 15 mg/dL (6-20); Calcium 9.9 mg/dL (8.5-10.5); Carbon Dioxide 23 mmol/L (22-29); Chloride 101 mmol/L (98-107); Glomerular Filtration Rate 80.7 mL/min (90-130); Glucose 73 mg/dL (65-115); Lipase 52 U/L (13-60); Magnesium 2.1 mg/dL (1.7-2.3); Osmolality Calculated 285 mOsm/kg (285-295); Sodium 138 mmol/L (136-145); Total Bilirubin 0.3 mg/dL (0.15-1.2); Total Protein 7.6 g/dL (6.6-8.7)
[2022-05-13 11:48] LABS: Anion Gap 17.1 (5-19); Potassium 3.1 mmol/L (3.5-5.1)
[2022-05-13 11:55] LABS: Valproic Acid Level 2.8 ug/mL (50-100)
[2022-05-13 12:57] LABS: Add Urine Microscopic? NO; Charge for UA Resulting for Rev
[2022-05-13 13:02] LABS: Urine Color Yellow (Yellow)
[2022-05-13 13:03] LABS: Bilirubin Urine Neg (Negative); Blood Urine Neg (Negative); Glucose Urine UA Norm (Normal); Ketones Urine Negative (Negative); Leukocyte Esterase Urine Negative (Negative); Nitrate Urine Negative (Negative); Protein Urine Neg (Negative); Specific Gravity, Urine 1.005 (1.005-1.030); Urine Appearance Clear (CLEAR); Urobilinogen Urine Norm (Negative); pH Urine 5 (5-7)
[2022-05-13] MEDS: lidocaine 5% Patch 1 PATCH TOPICAL (13:17)
[2022-05-13] MEDS: acetaminophen 500 mg Tablet PO (13:17)
--- NOTE | 2022-05-14 10:01 | DCPLANNER ---
Addendum entered by Thalia Kim 06/06/22 08:34: Patients appointment was cancelled Addendum entered by Thalia Kim 05/16/22 12:13: Patient has a follow up appointment scheduled for Thursday, June 02, 2022 at 10:[address] Escobar. Clinic will call patient with appointment information. Original Note: channel sales manager had message to schedule a follow up appointment for patient with neurology. channel sales manager sent patients information to the front office staff at neurology. Patients information will be printed and reviewed. Clinic will call patient with appointment information.
== END 2022-05-13 13:46 | disposition home or self-care (01) ==
PROVIDERS: Emergency Provider Emergency Medicine; PCP Nurse Practitioner Family
DX: R56.9 Unspecified convulsions (principal)
CPT/HCPCS: 70450; 71045; 72125; 73030; 80053; 80164; 81003; 81025; 83690; 83735; 85025; 96365; 99285; J1953; J7030

== ENCOUNTER → 2022-06-10 14:36 | Outpatient (BNVA) | payer BC, MEDICAID, SELFPAY | PROVIDERS: PCP Nurse Practitioner Family; Referring Provider Family Medicine; Visit Provider Orthopaedic Surgery | DX: M47.12 Other spondylosis with myelopathy, cervical region (principal) | CPT/HCPCS: 72050 ==

== ENCOUNTER 2022-07-02 11:53 | Outpatient (CLI) | payer BC, MEDICAID, SELFPAY ==
--- NOTE | 2022-07-02 12:00 | MR_ITS ---
WS: [email or web address] MRI CERVICAL SPINE NONCONTRAST HISTORY: neck pain COMPARISON: CT cervical spine 05/13/2022 Technique: Multiplanar, multisequence noncontrast imaging of the cervical spine. Normal posterior cervical alignment. Moderate disc space narrowing and desiccation throughout the cer vical spine. Signal within the cervical cord is normal. There are disc bulges and osteophytes throughout the cervi low spine but most significant from C3-4 to C6-7. Craniocervical junction, C1 and C2 relationship, odontoid process and soft tissues are normal. C2-C3: Normal. C3-C4: Diffuse osteophytic ridging with mild facet joint arthritis. Small central disc protrusion is probably present but there is mild motion artifact. Mild central and bilateral foraminal stenosis. C4-C5: Diffuse annular disc bulge with a central disc protrusion. Contact and deformity of the ventra l thecal sac. Near complete effacement of CSF. Bilateral facet joint arthritis. Moderate central and bilateral foraminal stenosis. C5-C6: Diffuse osteophytic ridging and disc bulging. Significant motion artifact. Moderate central st enosis with at least moderate foraminal stenosis. Greater stenosis in the RIGHT foramen and there may be a small disc protrusion or focal osteophyte contributing to the stenosis. C6-C7: Diffuse annular disc bulge with a central disc protrusion. Effacement of ventral CSF. There is at least moderate central and bilateral foraminal stenosis. Greater stenosis involving the LEFT fora men. C7-T1: No stenosis. Paraspinal soft tissue are normal. MR/MR cervical spin wo con* [id number] IMPRESSION: 1. Quality is limited by breathing and motion artifact. 2. Multilevel disc and foraminal stenosis. 3. Mild central and bilateral foraminal stenosis at C3-4. 4. Moderate central and bilateral foraminal stenosis at C4-5, C5-6 and C6-7. 5. Suspect there may be an additional small disc protrusion or osteophyte encr oaching into the RIGHT foramen at C5-6. 6. Slightly greater stenosis and encroachment into the LEFT foramen at C6-7 du e to osteophyte.
== END 2022-07-02 11:54 | disposition home or self-care (01) ==
LOC: RAD 11:54
PROVIDERS: PCP Nurse Practitioner Family; Visit Provider Orthopaedic Surgery
DX: M54.2 Cervicalgia (principal); M48.02 Spinal stenosis, cervical region; M25.78 Osteophyte, vertebrae
CPT/HCPCS: 72141

== ENCOUNTER 2023-05-18 11:21 | Emergency (ER) | payer BC, MEDICAID, SELFPAY ==
[2023-05-18 11:26] VITALS: BP 104/74; PULSE 89; RESP 16; TEMP 36.7; O2SAT 95; BMI 32.8
--- NOTE | 2023-05-18 12:23 | ED_ITS ---
HPI - URI/Sore Throat General: Chief Complaint: Upper Respiratory Infection Stated Complaint: sob, cough Time Seen by Provider: 05/18/23 12:23 Source: patient Mode of arrival: wheelchair Limitations: no limitations History of Present Illness: Patient is a 38-year-old female presents to ED today with a complaint of cough, headache, chest congestion, nasal congestion/sinus pressure, body aches, diarrhe a, and nausea. She states symptoms of been present over the past 2 weeks. She states she was seen at [facility] 2 days ago and had negative rapid flu and COVID performed. She states she went there again today and they told her symptoms were viral and she was discharged. I did speak to physician at [facility] that treated patient today and she states they do have a viral panel pending on her currently. Patient seemed dissatisfied with these 2 evaluations thus prompting her visit here. MD elicited complaint: cough, nasal congestion, sinus pain and other (body aches, nausea, diarrhea, headache) Onset (ago): week(s) Consistency: constant Severity: moderate Description of mucous: watery Able to tolerate fluids by mouth: Yes Exacerbating factors: nothing Relieving factors: nothing Associated symptoms: Reports chills, cough, diarrhea, headache(s), nasal congestion, nausea and sinus pain; Deny abdominal pain, chest pain, ear or mastoid pain, fever(s) or vomiting Treatments prior to arrival: none Review of Systems Const: Reports: chills, body aches and fatigue; Denies: fever(s) Eyes: Denies: change in vision, blurry vision, photophobia, floaters or seeing flashes ENMT: Reports: nasal congestion and sinus pain; Denies: throat pain, odynophagia or ear or mastoid pain Card: Denies: chest pain, palpitations, irregular heart rhythm, edema, swelling of feet/ankles, lightheadedness, syncope, pre-syncope, dyspnea on exertion or orthopnea Resp: Reports: productive cough and chest congestion; Denies: dyspnea, wheezing or hemoptysis GI: Reports: nausea and diarrhea; Denies: abdominal pain, vomiting or hematemesis : Denies: flank pain, difficulty voiding, dysuria, urinary frequency, urinary urgency or urinary hesitancy Musc: Denies: neck pain, back pain, extremity pain or joint pain Skin/Breast: Denies: rash Neuro: Reports: headache(s); Denies: numbness in extremities, weakness in extremities, sensory changes or dizziness PFSH ED PFSH: Medical History Migraine Seizure Social History Smoking and tobacco status: former smoker Alcohol intake: never Substance/Drug Use: never Adopted: No Caregiver/support person: No Lives independently: No Household members: children service: No Current occupational status: employed Sexually active: Yes Do you think of yourself as: Straight/Heterosexual Current gender identity: Female Physical Exam Const: COMMON NORMALS: no acute distress, average body habitus, patient oriented x3, no limitations, alert and well nourished GENERAL APPEARANCE: cooperative and anxious ORIENTATION/CONSCIOUSNESS: Yes awake, Yes oriented to person, Yes oriented to place and Yes oriented to time HENMT: COMMON NORMALS: normocephalic, atraumatic, hearing grossly normal bilaterally, external ears normal, EAC's normal, TM's normal bilaterally, Normal external nose present, Normal nasal mucous membranes and turbinates present, moist oral mucous membranes and oropharynx normal HEAD & SCALP: normal to inspection, normocephalic and atraumatic FACE & SINUS: normal facial exam and sinus tenderness maxillary NOSE: Normal external nose present and Normal nasal mucous membranes and turbinates present EXTERNAL EAR: Yes external ears normal EXTERNAL AUDITORY CANAL: EAC's normal TYMPANIC MEMBRANE: TM's normal bilaterally MOUTH: Normal oral and palatal mucosa present, lip normal and tongue normal THROAT: posterior oropharynx normal, tonsils normal and uvula midline Eye: COMMON NORMALS: Equal, round and reactive pupils present and EOMs intact bilaterally GENERAL EYE: appearance normal, both eyes and all related structures and normal light reflex PUPIL: Yes Equal, round and reactive pupils present DIRECT OPHTHALMOSCOPY: Yes normal light reflex Neck/C-Spine: COMMON NORMALS: full ROM, no lymphadenopathy and no meningeal signs Resp: COMMON NORMALS: normal respiratory effort and clear to auscultation bilaterally AUSCULTATION: clear to auscultation bilaterally Cardio: COMMON NORMALS: regular rate and regular rhythm RATE: regular rate RHYTHM: regular rhythm GI: COMMON NORMALS: Normal to inspection, nondistended, normoactive bowel sounds present, Soft to palpation, No hepatosplenomegaly present and no masses INSPECTION: Yes normal to inspection AUSCULTATION: Yes normoactive bowel sounds PALPATION: Yes Soft to palpation, Yes Tenderness to palpation present (GI) (minor tenderness LLQ/L pelvis; non-surgical exam), No Guarding due to palpation present (GI), No Rigid due to palpation and Yes No hepatosplenomegaly present : COMMON NORMALS: Yes no CVA tenderness BLADDER/KIDNEY EXAM: Yes no CVA tenderness Back/Pelvis: COMMON NORMALS: no CVA tenderness, thoracic and lumbar spine normal to inspection, no thoracic nor lumbar tenderness and thoraco-lumbar ROM normal Extremity: COMMON NORMALS: normal to inspection GENERAL: Yes normal exam except as noted Neuro: DIMITRIOS COMA SCALE: document GCS findings [place] coma scale eye opening: Spontaneous [place] coma scale verbal response: Orientated [place] coma scale motor response: Obey commands Dimitrios coma scale total score: 15 COMMON NORMALS: patient oriented x3, moves all extremities, no focal motor deficits and no sensory deficits noted SENSORIUM/ORIENTATION: Yes alert, Yes oriented to person, Yes oriented to place and Yes oriented to time MENINGEAL SIGNS: Yes no meningeal signs Skin: COMMON NORMALS: no rashes or lesions noted GENERAL SKIN EXAM: no rashes or lesions noted Course Vital Signs: Vital signs: Vital Signs Temperature 98.0 F 05/18/23 11:26 Pulse Rate 89 05/18/23 11:26 Respiratory Rate 16 05/18/23 11:26 Blood Pressure 104/74 05/18/23 11:26 Pulse Oximetry 95 05/18/23 11:26 Oxygen Delivery Me thod Room Air 05/18/23 11:26 MDM - URI/Sore Throat Medical Decision Making Patient arrives with normal vital signs. Patient was seen at [facility] 2 days ago and had a negative rapid flu/COVID test performed. Viral respiratory panel was also collected and is currently pending. She was seen at [facility] again today and told symptoms are most likely viral and was discharged home. She presents to our ED shortly after for re-evaluation. Certainly based on her history, viral etiology be at the top of my differential. CXR was obtained and normal. Patient's blood work and UA overall are unr emarkable. Mild hypokalemia noted at 3.0. She was given replacement for this prior to discharge. Patient's viral panel results should be resulted by tomorrow through [employer]. At this time I do not think patient requires any further emergency department work-up. Discussed conservative/symptomatic treatment at home. She can follow-up with primary care later this week if needed. Return to ED precautions given. Lab Data 05/18/23 13:50 05/18/23 13:50 Radiology Impressions Chest X-Ray 05/18/23 12:23 IMPRESSION: No acute findings. Laboratory Results WBC 6.95 10^3/uL (3.29-11.43) 05/18/23 13:50 RBC 4.71 10^6/uL (3.85-5.65) 05/18/23 13:50 Hgb 15.10 g/dL (11.27-16.99) 05/18/23 13:50 Hct 44.1 % (36-47) 05/18/23 13:50 MCV 93.6 fl (85-98) 05/18/23 13:50 MCH 32.1 pg (27-33) 05/18/23 13:50 MCHC 34.2 g/dL (30-55) 05/18/23 13:50 RDW 11.7 % (12.1-15.1) L 05/18/23 13:50 Plt Count 252 10^3/cmm (157-399) 05/18/23 13:50 MPV 10.8 fL (7.4-10.4) H 05/18/23 13:50 Neut % (Auto) 71.5 % 05/18/23 13:50 Lymph % (Auto) 18.7 % 05/18/23 13:50 Davis % (Auto) 6.9 % 05/18/23 13:50 Eos % (Auto) 1.9 % 05/18/23 13:50 Baso % (Auto) 0.6 % 05/18/23 13:50 Neut # (Auto) 4.97 10^3/uL (1.8-7.7) 05/18/23 13:50 Lymph # (Auto) 1.3 10^3/uL (0.8-4.8) 05/18/23 13:50 Davis # (Auto) 0.5 10^3/uL (0.2-0.9) 05/18/23 13:50 Eos # (Auto) 0.1 10^3/uL (0.0-0.8) 05/18/23 13:50 Baso # (Auto) 0.0 10^3/uL (0.0-0.1) 05/18/23 13:50 Nucleated RBC % (auto) 0 % 05/18/23 13:50 Nucleated RBCs # 0.0 /100WBC 05/18/23 13:50 Sodium 138 mmol/L (136-145) 05/18/23 13:50 Potassium 3.0 mmol/L (3.5-5.1) L 05/18/23 13:50 Chloride 102 mmol/L (98-107) 05/18/23 13:50 Carbon Dioxide 24 mmol/L (22-29) 05/18/23 13:50 Anion Gap 15.0 (5-19) 05/18/23 13:50 BUN 6 mg/dL (6-20) 05/18/23 13:50 Creatinine 0.8 mg/dL (0.5-0.9) 05/18/23 13:50 GFR Calculation 80.3 mL/min (90-130) L 05/18/23 13:50 Glucose 86 mg/dL (65-115) 05/18/23 13:50 Calculated Osmolality 283 mOsm/kg (285-295) L 05/18/23 13:50 Calcium 9.0 mg/dL (8.5-10.5) 05/18/23 13:50 Total Bilirubin 0.4 mg/dL (0.15-1.2) 05/18/23 13:50 AST 20 U/L (0-32) 05/18/23 13:50 ALT 19 U/L (0-33) 05/18/23 13:50 Alkaline Phosphatase 90 U/L (35-105) 05/18/23 13:50 Total Protein 8.0 g/dL (6.6-8.7) 05/18/23 13:50 Albumin 4.5 g/dL (3.5-5.2) 05/18/23 13:50 Globulin 3.5 g/dL (1.3-4.6) 05/18/23 13:50 HCG, Qual Negative (Negative) 05/18/23 13:50 Urine Color Yellow (Yellow) 05/18/23 13:50 Urine Appearance Clear (CLEAR) 05/18/23 13:50 Urine pH 5 (5-7) 05/18/23 13:50 Ur Specific [place] 1.005 (1.005-1.030) 05/18/23 13:50 Urine Protein Neg (Negative) 05/18/23 13:50 Urine Glucose (UA) Norm (Normal) 05/18/23 13:50 Urine Ketones Negative (Negative) 05/18/23 13:50 Urine Blood Neg (Negative) 05/18/23 13:50 Urine Nitrate Negative (Negative) 05/18/23 13:50 Urine Bilirubin Neg (Negative) 05/18/23 13:50 Urine Urobilinogen Norm mg/dL (Negative) 05/18/23 13:50 Ur Leukocyte Esterase Negative (Negative) 05/18/23 13:50 Discharge Plan Discharge Patient Disposition: Home Clinical Impression: Viral infection Condition: Stable Prescriptions: No Action divalproex [Depakote ER] 500 mg tablet extended release 24 hr 500 mg PO DAILY 90 Days Qty: 90 3RF meloxicam 7.5 mg tablet 7.5 mg PO DAILY gabapentin 100 mg capsule 100 mg PO BID albuterol sulfate [ProAir HFA] 90 mcg/actuation HFA aerosol inhaler 1 inh inhalation QID cyclobenzaprine 5 mg tablet 5 mg PO TID PRN duloxetine [Cymbalta] 30 mg capsule,delayed release(DR/EC) 30 mg PO DAILY Qty: 30 0RF dexamethasone sodium phosphate 4 mg/mL solution 8 mg Infiltration ONCE Qty: 2 0RF magnesium oxide 500 mg tablet 500 mg PO TID Qty: 90 3RF Rx Instructions: Take 1 tab 3 times a day. Discharge Orders: Discharge ED (Routine); Ordered 05/18/23 Ordered By: Nida Trujillo Referrals: Vicki Quintero FNP [Primary Care Provider] - Activity Restrictions/Additional Instructions: As we discussed please contact April tomorrow to see if your viral respiratory panel results have returned. You may follow-up with primary care this week for re-evaluation of symptoms do not seem to be improving. Coding Level of Care Code ED Lumber Checker for Dago Segovia
--- NOTE | 2023-05-18 12:23 | XRR_ITS ---
PROCEDURE INFORMATION: Exam: XR Chest Exam date and time: 05/18/2023 12:26 PM Age: 38 years old Clinical indication: Cough TECHNIQUE: Imaging protocol: Radiologic exam of the chest. Views: 1 view. COMPARISON: CR XR chest 1V portable [id number] 05/13/2022 11:30 AM FINDINGS: Lungs: Unremarkable. No consolidation. Pleural spaces: Unremarkable. No pleural effusion. No pneumothorax. Heart/Mediastinum: Unremarkable. No cardiomegaly. Bones/joints: Unremarkable. XR/XR chest 1V portable [id number] IMPRESSION: No acute findings.
[2023-05-18 14:14] LABS: Basophils % 0.6 %; Eosinophils # 0.1 10^3/uL (0.0-0.8); Eosinophils % 1.9 %; Hematocrit 44.1 % (36-47); Lymphocytes # 1.3 10^3/uL (0.8-4.8); Lymphocytes % 18.7 %; Mean Corpuscular HGB Conc 34.2 g/dL (30-55); Mean Corpuscular Hemoglobin 32.1 pg (27-33); Mean Corpuscular Volume 93.6 fl (85-98); Mean Platelet Volume 10.8 fL (7.4-10.4); Monocytes # 0.5 10^3/uL (0.2-0.9); Monocytes % 6.9 %; Neutrophils # 4.97 10^3/uL (1.8-7.7); Neutrophils % 71.5 %; Nucleated Red Blood Cells % 0 %; Platelet Count 252 10^3/cmm (157-399); Red Blood Count 4.71 10^6/uL (3.85-5.65); Red Cell Distribution Width 11.7 % (12.1-15.1); White Blood Count 6.95 10^3/uL (3.29-11.43)
[2023-05-18 14:27] LABS: HCG, Serum Qual Negative (Negative)
[2023-05-18 14:34] LABS: Alanine Aminotransferase 19 U/L (0-33); Albumin Level 4.5 g/dL (3.5-5.2); Alkaline Phosphatase 90 U/L (35-105); Aspartate Amino Transferase 20 U/L (0-32); Blood Urea Nitrogen 6 mg/dL (6-20); Carbon Dioxide 24 mmol/L (22-29); Chloride 102 mmol/L (98-107); Globulin 3.5 g/dL (1.3-4.6); Glomerular Filtration Rate 80.3 mL/min (90-130); Glucose 86 mg/dL (65-115); Osmolality Calculated 283 mOsm/kg (285-295); Sodium 138 mmol/L (136-145); Total Bilirubin 0.4 mg/dL (0.15-1.2)
[2023-05-18 14:42] LABS: Add Urine Microscopic? NO; Charge for UA Resulting for Rev
[2023-05-18 14:47] LABS: Bilirubin Urine Neg (Negative); Blood Urine Neg (Negative); Glucose Urine UA Norm (Normal); Ketones Urine Negative (Negative); Leukocyte Esterase Urine Negative (Negative); Nitrate Urine Negative (Negative); Protein Urine Neg (Negative); Specific Gravity, Urine 1.005 (1.005-1.030); Urine Appearance Clear (CLEAR); Urine Color Yellow (Yellow); Urobilinogen Urine Norm (Negative); pH Urine 5 (5-7)
[2023-05-18] MEDS: potassium chloride ER 20 mEq Tablet 40 MEQ PO (15:26)
== END 2023-05-18 15:33 | disposition home or self-care (01) ==
PROVIDERS: Emergency Provider Physician Assistant; PCP Nurse Practitioner Family
DX: B34.9 Viral infection, unspecified (principal); Z87.891 Personal history of nicotine dependence
CPT/HCPCS: 71045; 80053; 81003; 84703; 85025; 99284

== ENCOUNTER → 2023-06-11 13:03 | Outpatient (BNVA) | payer BC, MEDICAID, SELFPAY | PROVIDERS: PCP Nurse Practitioner Family; Visit Provider Obstetrics & Gynecology | DX: R10.2 Pelvic and perineal pain (principal) | CPT/HCPCS: 76830 ==

== ENCOUNTER → 2025-01-12 11:30 | Outpatient (BNVA) | payer BC, SELFPAY | PROVIDERS: PCP Nurse Practitioner Family; Visit Provider Obstetrics & Gynecology | DX: R89.6 Abnormal cytological findings in specimens from other organs, systems and tissues (principal); Z90.710 Acquired absence of both cervix and uterus | CPT/HCPCS: 76830 ==